=== PATIENT | female | born 1995 | race African-American/Black ===

== ENCOUNTER 2018-07-23 22:47 | Inpatient (IN) | payer MEDICAID ==
[~2018-07-23] VITALS: Ht 157.5 cm; Wt 71.2 kg
[~2018-07-23 22:47] MED LIST: ACETAMINOPHEN325 MG; MACROBID100 MG PO; PRENATAL COMPLE1 TAB PO
[2018-07-23 23:41] LABS: APPEARANCE CLEAR (CLEAR); COLOR YELLOW (YELLOW); GLUCOSE NEGATIVE (NEGATIVE); KETONE NEGATIVE (NEGATIVE); NITRITE NEGATIVE (NEGATIVE); PROTEIN NEGATIVE (NEGATIVE); SPECIFIC GRAVITY 1.005 (1.005-1.020); UROBILINOGEN NORMAL (NORMAL)
[2018-07-23 23:42] LABS: BILIRUBIN NEGATIVE (NEGATIVE)
[2018-07-23 23:43] LABS: UDS - AMPHET NEGATIVE QUAL (NEGATIVE); UDS - BARB NEGATIVE QUAL (NEGATIVE); UDS - BENZO NEGATIVE QUAL (NEGATIVE); UDS - COCAINE NEGATIVE QUAL (NEGATIVE); UDS - OPIATE NEGATIVE QUAL (NEGATIVE); UDS - PCP NEGATIVE QUAL (NEGATIVE); UDS - THC NEGATIVE QUAL (NEGATIVE)
[2018-07-24 00:34] LABS: BASOPHILS 0.1 % (0-2); EOSINOPHILS 0.3 % (0-7); HEMATOCRIT 24.9 % (36.0-48.0); HEMOGLOBIN 8.5 g/dL (12-16); IMMATURE GRANULOCYTES 0.4 % (0-5); LYMPHOCYTES 16.8 % (15-50); MCH 24.9 pg (26.0-34.0); MCHC 34.1 g/dL (31.0-37.0); MCV 72.8 fL (80.0-100.0); MONOCYTES 6.8 % (2-11); NEUTROPHILS 75.6 % (40-80); PLATELET COUNT 177 10x3/uL (130-400); RBC 3.42 10x6/uL (4.00-5.40); RDW 15.3 % (11.5-14.5); WBC 18.3 10x3/uL (4.8-10.8)
[2018-07-24 03:38] VITALS: BP 116/56; Ht 157.5 cm; Wt 71.2 kg
[2018-07-24 08:25] VITALS: BP 108/57
[2018-07-24 12:08] VITALS: BP 105/58
[2018-07-24 20:00] VITALS: BP 109/50
[2018-07-25 05:39] LABS: BASOPHILS 0.1 % (0-2); EOSINOPHILS 0.9 % (0-7); HEMATOCRIT 23.2 % (36.0-48.0); HEMOGLOBIN 7.9 g/dL (12-16); IMMATURE GRANULOCYTES 0.4 % (0-5); MCH 24.8 pg (26.0-34.0); MCHC 34.1 g/dL (31.0-37.0); NEUTROPHILS 72.6 % (40-80); PLATELET COUNT 175 10x3/uL (130-400); RBC 3.18 10x6/uL (4.00-5.40); RDW 15.4 % (11.5-14.5); WBC 17.8 10x3/uL (4.8-10.8)
[2018-07-25 08:57] VITALS: BP 99/58
[2018-07-25 16:20] VITALS: BP 105/55
[2018-07-25 19:40] VITALS: BP 99/55
[2018-07-26 05:45] LABS: HEMATOCRIT 23.8 % (36.0-48.0); HEMOGLOBIN 8.1 g/dL (12-16); MCV 73.5 fL (80.0-100.0); MEAN PLATELET VOLUME 11.8 fL (7.4-10.4); RBC 3.24 10x6/uL (4.00-5.40); RDW 15.5 % (11.5-14.5); WBC 15.2 10x3/uL (4.8-10.8)
[2018-07-26 07:30] VITALS: BP 105/69
[2018-07-26 15:02] VITALS: BP 120/61
[2018-07-26 15:15] VITALS: BP 111/69
[2018-07-26 15:30] VITALS: BP 115/65
[2018-07-26 15:45] VITALS: BP 120/69
[2018-07-26] MEDS ORDERED: PERCOCET 5-3251 TAB PO (17:18)
[2018-07-26] MEDS ORDERED: MOTRIN600 MG PEG (17:18)
[2018-07-27 05:15] LABS: RAPID PLASMA REAGIN Non Reactive (Non Reactive)
== END 2018-07-26 18:30 | disposition home or self-care (01) | DRG 798 ==
LOC: D.LDO 22:47 → D.LD 22:48 → D.LDO 23:00 → D.LD 23:01
PROVIDERS: Obstetrics & Gynecology
PROC: 10E0XZZ Delivery of Products of Conception, External Approach (ICD-10-PCS; 2018-07-24)
PROC: 0UB74ZZ Excision of Bilateral Fallopian Tubes, Percutaneous Endoscopic Approach (ICD-10-PCS; principal; 2018-07-26 12:00)
DX: O99.334 Smoking (tobacco) complicating childbirth (principal); Z37.0 Single live birth; Z3A.37 37 weeks gestation of pregnancy; M32.9 Systemic lupus erythematosus, unspecified; D86.9 Sarcoidosis, unspecified; Z30.2 Encounter for sterilization